=== PATIENT | female | born 1950 | race Caucasian/White ===

== ENCOUNTER 2018-03-17 18:27 | Emergency (ER) | payer BC, MEDICAID ==
[~2018-03-17] VITALS: Ht 160 cm; Wt 107.5 kg
[2018-03-17 18:27] VITALS: BP 169/88
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
--- NOTE | 2018-03-17 20:48 | NUR ---
PT STATES SHE NO LONGER WANTS TO BE SEEN BY ER MD AND WILL GO TO URGENT CARE TOMORROW. PT LEFT BEFORE BEING SEEN BY ER MD
== END 2018-03-17 20:52 | disposition left against medical advice (07) ==
LOC: ER 18:34
DX: Z53.21 Procedure and treatment not carried out due to patient leaving prior to being seen by health care provider (principal); M25.512 Pain in left shoulder; R07.89 Other chest pain; I10 Essential (primary) hypertension; J45.909 Unspecified asthma, uncomplicated; E11.9 Type 2 diabetes mellitus without complications; Z88.5 Allergy status to narcotic agent; V49.09XA Driver injured in collision with other motor vehicles in nontraffic accident, initial encounter; Y93.89 Activity, other specified; Y92.410 Unspecified street and highway as the place of occurrence of the external cause; Y99.8 Other external cause status
CPT/HCPCS: A4606; Z7610